=== PATIENT | male | born 1995 | race African-American/Black ===

== ENCOUNTER 2018-06-14 19:28 | Emergency (ER) | payer MEDICAID ==
[~2018-06-14] VITALS: Ht 195.6 cm; Wt 66.8 kg
[~2018-06-14 19:28] MED LIST: NO HOME MEDS
[2018-06-14 19:54] VITALS: BP 121/78
[2018-06-14] MEDS ORDERED: SULF1TAB49 PO (21:37)
[2018-06-14] MEDS ORDERED: clindamycin phosphate 150mg/ml inj. IM ONE (21:40)
== END 2018-06-14 22:04 | disposition home or self-care (01) ==
LOC: ER 19:29
DX: L02.31 Cutaneous abscess of buttock (principal)
CPT/HCPCS: 96372; 99283; A6449; J3490

== ENCOUNTER 2019-07-31 07:13 | Emergency (ER) | payer MEDICAID ==
[~2019-07-31] VITALS: Ht 182.9 cm; Wt 68.2 kg
[2019-07-31] MEDS ORDERED: LORazepam 0.5 MG tablet PO STA (08:30)
[2019-07-31] MEDS ORDERED: LIDOcaine 1% w/EPI 1:200,000 injection 10mL vial IM ONE (08:35)
[2019-07-31] MEDS ORDERED: TETanus/Pertussis (Acell)/Diphther VAC/PF (Tdap-Adult) 0.5ml syringe IM ONE (08:35)
[2019-07-31] MEDS ORDERED: LIDOcaine 1% W/epiNEPHrine 1:200,000 10ml vial IJ ONE (08:40)
[2019-07-31 08:52] LABS: BASOPHILS % (AUTO) 0.4 % (0-1); EOSINOPHILS % (AUTO) 0.4 % (0-6); HEMATOCRIT 36.4 % (42.0-52.0); HEMOGLOBIN 11.7 g/dl (14.0-17.9); LYMPHOCYTES # (AUTO) 1.1 X10'3 (1.1-4.8); LYMPHOCYTES % (AUTO) 8.6 % (21-51); MEAN CORPUSCULAR HEMOGLOBIN 27.2 PG (27.0-31.0); MEAN CORPUSCULAR HGB CONC 32.2 g/dL (33.0-36.5); MEAN CORPUSCULAR VOLUME 84.6 FL (78-98); MEAN PLATELET VOLUME 8.3 FL (7.4-10.4); MONOCYTES # (AUTO) 1.5 X10'3 (0-0.9); MONOCYTES % (AUTO) 11.5 % (2-12); NEUTROPHILS # (AUTO) 10.1 X10'3 (1.8-7.7); NEUTROPHILS % (AUTO) 79.1 % (42-75); PLATELET COUNT 226 X10'3 (140-440); RED CELL DISTRIBUTION WIDTH 15.1 % (11.5-14.5); WHITE BLOOD COUNT 12.8 X10'3 (4.5-11.0)
[2019-07-31 09:06] LABS: ALANINE AMINOTRANSFERASE 54 U/L (12-78); ALBUMIN 2.9 G/DL (3.4-5.0); ALBUMIN/GLOBULIN RATIO 0.6 (1.1-1.5); ALKALINE PHOSPHATASE 75 IU/L (46-116); ANION GAP 6 (8-16); ASPARTATE AMINO TRANSFERASE 32 U/L (10-37); BILIRUBIN,TOTAL 0.4 MG/DL (0.1-1.0); BLOOD UREA NITROGEN 6 MG/DL (7-18); BUN/CREATININE RATIO 8.7 (5.4-32.0); CALCIUM 8.5 MG/DL (8.5-10.1); CHLORIDE 103 MMOL/L (99-107); CREATININE 0.69 MG/DL (0.60-1.10); GLUCOSE 105 MG/DL (70-104); POTASSIUM 3.9 MMOL/L (3.5-5.1); SODIUM 138 MMOL/L (135-145); TOTAL CARBON DIOXIDE 29.2 MMOL/L (24-32); TOTAL PROTEIN 7.6 G/DL (6.4-8.2); eGFR > 90 ML/MIN
[2019-07-31] MEDS ORDERED: DOXY100C43 PO (09:29)
[2019-07-31] MEDS ORDERED: CefTRIAXone 250MG IM Kit w/LIDOcaine IM ONE (09:30)
[2019-07-31 09:57] VITALS: BP 148/69
--- NOTE | 2019-07-31 10:10 | NUR ---
NO I/D PERFORMED NO NEED FOR DRESSING
== END 2019-07-31 10:10 | disposition home or self-care (01) ==
LOC: ER 07:13
DX: L03.115 Cellulitis of right lower limb (principal); R59.0 Localized enlarged lymph nodes; F15.90 Other stimulant use, unspecified, uncomplicated; Z79.2 Long term (current) use of antibiotics
CPT/HCPCS: 36415; 80053; 85025; 90471; 90715; 96372; 99284; J0696

== ENCOUNTER 2019-10-03 05:59 | Emergency (ER) | payer MEDICAID ==
[~2019-10-03] VITALS: Ht 182.9 cm; Wt 78.0 kg
[2019-10-03] MEDS ORDERED: dexamethasone sod phosphate 10mg/ml inj IM STA (06:26)
--- NOTE | 2019-10-03 09:35 | NUR ---
BREAKING PRIMARY RN, PT SUPINE IN BED, NO NEEDS, AWAKE AND AWARE
[2019-10-03 09:58] VITALS: BP 140/82
--- NOTE | 2019-10-03 10:10 | NUR ---
PT LEFT ROOM TO GO GET SOME "FRESH AIR". EXPLAINED IMPORTANCE OF PT NEED TO STAY IN ROOM AND WHY HE NEEDS CONTINUED CARE AND PT REPORTS "I JUST NEED SOME FRESH AIR, I'VE BEEN HERE SINCE 5:30". MD CHILD INFORMED AND AND THIS RN WALKED OUTSIDE TO SPEAK WITH PT AND PT NO WHERE TO BE FOUND.
--- NOTE | 2019-10-03 10:29 | NUR ---
SPOKE WITH MOTHER ADALBERTO DIAS WHO WAS ON THE WAY TO HOSPITAL PER PATIENT'S REQUEST AND WILL CONTACT HIM TO RETURN TO ER. AWARE.
== END 2019-10-03 10:15 | disposition left against medical advice (07) ==
LOC: ER 05:59
DX: M48.061 Spinal stenosis, lumbar region without neurogenic claudication (principal); M21.371 Foot drop, right foot; F12.90 Cannabis use, unspecified, uncomplicated; F15.90 Other stimulant use, unspecified, uncomplicated
CPT/HCPCS: 72148; 96372; 99285; J1100

== ENCOUNTER 2019-10-03 15:26 | Emergency (ER) | payer MEDICAID ==
[~2019-10-03] VITALS: Ht 185.4 cm; Wt 69.0 kg
--- NOTE | 2019-10-03 20:45 | NUR ---
Called report to Lala MCCARTY at [facility]. Pt is waiting for transportation.
[2019-10-03 22:30] VITALS: BP 122/87
--- NOTE | 2019-10-03 22:40 | NUR ---
CALLED KAREN MCCARTY TO CONFIRM DR. ALVARADO IS OKAY WITH POV DIRECT ADMIT. DR PALOMARES STATES PT IS MEDICALLT STABLE FOR POV.
== END 2019-10-03 23:00 | disposition short-term general hospital (02) ==
LOC: ER 15:26
DX: M21.371 Foot drop, right foot (principal); F12.90 Cannabis use, unspecified, uncomplicated; F15.90 Other stimulant use, unspecified, uncomplicated
CPT/HCPCS: 99285

== ENCOUNTER 2020-09-05 11:42 | Emergency (ER) | payer MEDICAID ==
[~2020-09-05] VITALS: Ht 185.4 cm; Wt 59.1 kg
[2020-09-05 13:10] VITALS: BP 128/93
== END 2020-09-05 13:18 | disposition home or self-care (01) ==
LOC: ER 11:42
DX: R07.81 Pleurodynia (principal); R63.6 Underweight; F12.90 Cannabis use, unspecified, uncomplicated; F15.90 Other stimulant use, unspecified, uncomplicated; Z68.1 Body mass index [BMI] 19.9 or less, adult
CPT/HCPCS: 99283

== ENCOUNTER 2023-06-01 18:39 | Emergency (ER) | payer MEDICAID ==
[~2023-06-01] VITALS: Ht 182.9 cm; Wt 71.4 kg
[2023-06-01 18:55] VITALS: BP 121/80; PULSE 76; RESP 12; TEMP 98.1; O2SAT 97
== END 2023-06-01 20:57 | disposition left against medical advice (07) ==
LOC: ER 18:40
DX: Z00.8 Encounter for other general examination (principal); Z53.21 Procedure and treatment not carried out due to patient leaving prior to being seen by health care provider
CPT/HCPCS: 99281

== ENCOUNTER 2023-06-01 21:19 | Emergency (ER) | payer MEDICAID ==
[~2023-06-01] VITALS: Ht 182.9 cm; Wt 71.4 kg
[2023-06-01 21:34] VITALS: BP 115/75; PULSE 77; RESP 14; TEMP 98.2; O2SAT 98
== END 2023-06-01 23:43 | disposition home or self-care (01) ==
LOC: ER 21:20
DX: F12.90 Cannabis use, unspecified, uncomplicated (principal); F15.90 Other stimulant use, unspecified, uncomplicated; F11.20 Opioid dependence, uncomplicated
CPT/HCPCS: 99281

== ENCOUNTER 2024-06-03 20:22 | Emergency (ER) | payer MEDICAID ==
[~2024-06-03] VITALS: Ht 185.4 cm; Wt 75.0 kg
[2024-06-03 20:34] VITALS: BP 129/89; PULSE 101; TEMP 98.8; O2SAT 99
[2024-06-03 20:45] VITALS: RESP 15
[2024-06-03] MEDS: normal saline 1000ml 1,000 ML IV ONE (21:27)
== END 2024-06-04 02:26 | disposition home or self-care (01) ==
LOC: ER 20:23
DX: T40.411A Poisoning by fentanyl or fentanyl analogs, accidental (unintentional), initial encounter (principal); R07.89 Other chest pain; F12.90 Cannabis use, unspecified, uncomplicated; F15.90 Other stimulant use, unspecified, uncomplicated; Y92.89 Other specified places as the place of occurrence of the external cause
CPT/HCPCS: 71045; 93005; 99283